=== PATIENT | female | born 1955 | race American Indian/Alaskan Native ===

== ENCOUNTER 2017-07-02 14:46 | Outpatient (CLI) | payer BC ==
--- NOTE | 2017-07-03 09:33 | Mammography Report ---
Bilateral screening mammogram with CAD, including tomosynthesis. History: Cancer screening. Comparison study is dated April 25, 2016. Findings: There is heterogeneous density of the fibroglandular tissue with no evidence of focal mass or architectural distortion. Scattered bilateral microcalcifications demonstrating benign features and are stable. No suspicious microcalcific lesions are seen. Impression: Stable benign findings. BI-RADS code: 2. Recommendation: Annual screening.
== END 2017-07-02 14:47 | disposition home or self-care (01) ==
LOC: MAMMO 14:46
PROVIDERS: ATTEND Internal Medicine
DX: Z12.31 Encounter for screening mammogram for malignant neoplasm of breast (principal)
CPT/HCPCS: 77063; G0202; 77067

== ENCOUNTER 2019-07-17 12:40 | Outpatient (CLI) | payer BC ==
--- NOTE | 2019-07-17 15:51 | Mammography Report ---
DIGITAL SCREENING MAMMOGRAM WITH CAD, 07/17/2019 INDICATION: Routine screening mammography. TECHNIQUE: Digital bilateral 2D mammography was obtained in the craniocaudal and mediolateral obliq ue projections. This examination was interpreted with the benefit of Computer-Aided Detection analysi s. COMPARISON: 07/16/2018 FINDINGS: Breast Density: The breasts are heterogeneously dense, which may obscure small masses. There is no evidence of dominant mass, suspicious calcifications or architectural distortion in eithe r breast. IMPRESSION: No mammographic evidence of malignancy. Follow up recommendation: Routine yearly BI-RADS Category 2: Benign. A "normal" or negative report should not discourage follow up or biopsy of a clinically significant f inding. A written summary of these findings will be mailed to the patient. The patient will be entered into a mammography reporting system which will generate a reminder letter for the patient's next appointmen t at the appropriate interval. The [employer] recommends yearly mammograms starting at age 40 and continuing as l solomon as a woman is in good health. Breast MRI is recommended for women with an approximate 20-25% or greater lifetime risk of breast cancer, including women with a strong family history of breast or ova sadie cancer or who have been treated for Hodgkin's disease. Signer Name: Marvin Loaiza MD Signed: 07/17/2019 3:46 PM Workstation Name: [id number]
== END 2019-07-17 12:41 | disposition home or self-care (01) ==
LOC: MAMMO 12:40
PROVIDERS: ATTEND Internal Medicine
DX: Z12.31 Encounter for screening mammogram for malignant neoplasm of breast (principal)
CPT/HCPCS: 77067

== ENCOUNTER 2020-07-29 14:04 | Outpatient (CLI) | payer MEDICARE, BC ==
--- NOTE | 2020-07-29 16:31 | Mammography Report ---
DIGITAL SCREENING MAMMOGRAM WITH CAD, 07/29/2020 INDICATION: Routine screening mammography. TECHNIQUE: Digital bilateral 2D mammography was obtained in the craniocaudal and mediolateral obliq ue projections. This examination was interpreted with the benefit of Computer-Aided Detection analysi s. COMPARISON: 931 2018, 07/16/2018, 06/22/2017, 04/25/2016 FINDINGS: Breast Density: The breasts are heterogeneously dense, which may obscure small masses. There is no evidence of dominant mass, suspicious calcifications or architectural distortion in eithe r breast. Scattered bilateral breast calcifications are again noted and appear unchanged. IMPRESSION: Follow up recommendation: Routine yearly BI-RADS Category 2: Benign. A "normal" or negative report should not discourage follow up or biopsy of a clinically significant f inding. A written summary of these findings will be mailed to the patient. The patient will be entered into a mammography reporting system which will generate a reminder letter for the patient's next appointmen t at the appropriate interval. The [employer] recommends yearly mammograms starting at age 40 and continuing as l solomon as a woman is in good health. Breast MRI is recommended for women with an approximate 20-25% or greater lifetime risk of breast cancer, including women with a strong family history of breast or ova sadie cancer or who have been treated for Hodgkin's disease. Signer Name: Chika Rojas MD Signed: 07/29/2020 4:26 PM Workstation Name: [id number]
== END 2020-07-29 14:05 | disposition home or self-care (01) ==
LOC: MAMMO 14:04
PROVIDERS: ATTEND Internal Medicine
DX: Z12.31 Encounter for screening mammogram for malignant neoplasm of breast (principal)
CPT/HCPCS: 77067

== ENCOUNTER 2021-08-02 11:16 | Outpatient (CLI) | payer MEDICARE, BC ==
--- NOTE | 2021-08-03 08:48 | Mammography Report ---
DIGITAL SCREENING MAMMOGRAM WITH CAD, 08/02/2021 CLINICAL INFORMATION / INDICATION: Routine screening mammography. SCREENING MAMMOGRAM TECHNIQUE: Digital bilateral 2D mammography was obtained in the craniocaudal and mediolateral obliqu e projections. This examination was interpreted with the benefit of Computer-Aided Detection analysis . COMPARISON: 07/29/2020 FINDINGS: Breast Density: The breasts are heterogeneously dense, which may obscure small masses. No dominant mass, suspicious calcifications, or architectural distortion in either breast. Largely unchanged nodular densities in the breasts, commonly fibroglandular or fibrocystic change. IMPRESSION: No mammographic evidence of malignancy. Follow up recommendation: Routine yearly BI-RADS Category 2: Benign. A "normal" or negative report should not discourage follow up or biopsy of a clinically significant f inding. A written summary of these findings will be mailed to the patient. The patient will be entered into a mammography reporting system which will generate a reminder letter for the patient's next appointmen t at the appropriate interval. The [employer] recommends yearly mammograms starting at age 40 and continuing as l solomon as a woman is in good health. Breast MRI is recommended for women with an approximate 20-25% or greater lifetime risk of breast cancer, including women with a strong family history of breast or ova sadie cancer or who have been treated for Hodgkin's disease. Signer Name: Mike Banuelos MD Signed: 08/03/2021 8:43 AM Workstation Name: [id number]
== END 2021-08-02 11:17 | disposition home or self-care (01) ==
LOC: MAMMO 11:16
PROVIDERS: ATTEND Internal Medicine
DX: Z12.31 Encounter for screening mammogram for malignant neoplasm of breast (principal)
CPT/HCPCS: 77067